=== PATIENT | female | born 1960 | race Caucasian/White ===

== ENCOUNTER → 2018-02-06 08:19 | Outpatient (CLI) | payer OTHER, SELFPAY ==
[2018-02-06 09:49] LABS: Add Manual Diff / Slide Review NO; Basophils Percent Auto 0.9 % (0-2); Eosinophils Percent Auto 0.5 % (2-4); Hematocrit 42.1 % (36-46); Hemoglobin 14.3 g/dL (12.0-16.0); Lymphocytes Percent Auto 35.8 % (25-40); Mean Corpuscular HGB Conc 34.1 % (30-36); Mean Corpuscular Hemoglobin 31.2 PG (26-34); Mean Corpuscular Volume 91.5 fL (80-100); Monocytes Percent Auto 7.7 % (3-14); Neutrophils Absolute Auto 2400 /uL (3000-5900); Neutrophils Percent Auto 55.1 % (50-75); Platelet Count 321 X10^3/uL (150-400); Red Cell Distribution Width 12.8 % (11.6-14.8); White Blood Cell Count 4.4 X10^3/uL (4.5-11.0)
[2018-02-06 09:51] LABS: Cholesterol 216 mg/dL (140-199); Glucose 108 mg/dL (70-100); HDL Cholesterol 69 mg/dL (40-60); LDL Cholesterol Calculated 136 mg/dL (<100); Triglycerides 53 mg/dL (35-150)
[2018-02-06 10:23] LABS: Thyroid Stimulating Hormone 1.15 uIU/mL (0.47-4.68)
== END ==
PROVIDERS: Family Provider Family Medicine; PCP Family Medicine; Visit Provider Family Medicine
DX: E78.5 Hyperlipidemia, unspecified (principal)
CPT/HCPCS: 36415; 80061; 82947; 84443; 85025